=== PATIENT | female | born 1990 | race Caucasian/White ===

== ENCOUNTER 2019-06-02 15:33 | Outpatient (CLI) | payer OTHER | END 2019-06-02 15:34 | disposition home or self-care (01) | LOC: EMS 15:33 | PROVIDERS: ATTEND Surgery | DX: O14.15 Severe pre-eclampsia, complicating the puerperium (principal) | CPT/HCPCS: A0425; A0429 ==

== ENCOUNTER 2019-06-02 16:11 | Inpatient (IN) | payer OTHER ==
[2019-06-02 17:40] LABS: URIC ACID 6.1 mg/dL (2.6-7.2)
[2019-06-02 17:44] LABS: BASOPHILS % (AUTO) 0.3 %; EOSINOPHILS # (AUTO) 0.1 10^3/uL (0.0-0.7); EOSINOPHILS % (AUTO) 0.9 %; HGB - HEMOGLOBIN 12.3 g/dL (12.0-16.0); LYMPHOCYTES # (AUTO) 1.9 10^3/uL (1.5-3.5); MEAN CORPUSCULAR HEMOGLOBIN 30.7 pg (27.0-31.0); MEAN CORPUSCULAR HGB CONC 33.4 g/dL (32.0-36.0); MEAN CORPUSCULAR VOLUME 91.8 fL (81.0-99.0); MEAN PLATELET VOLUME 10.8 fL (7.9-10.8); MONOCYTES # (AUTO) 0.7 10^3/uL (0.0-1.0); MONOCYTES % (AUTO) 6.6 %; NEUTROPHILS # (AUTO) 7.3 10^3/uL (1.5-6.6); NEUTROPHILS % (AUTO) 70.7 %; PLT - PLATELET COUNT 265 10^3/uL (130-450); RED BLOOD COUNT 4.01 10^6/uL (4.20-5.40); WHITE BLOOD COUNT 10.3 x10^3/uL (4.8-10.8)
[2019-06-02 17:52] LABS: CREATININE 0.5 mg/dL (0.4-1.0)
[2019-06-02] MEDS ORDERED: IBUPROFEN 600 MG TABLET PO PRN (18:03)
[2019-06-02] MEDS ORDERED: ONDANSETRON ODT 4 MG TABLET TL PRN (18:03)
--- NOTE | 2019-06-02 18:38 | HISTORY & PHYSICAL EXAMINATION ---
Chief Complaint - Chief Complaint Chief Complaint: Elevated blood pressures History of Present Illness - Admitted From Admitted From:: [facility] - History of Present Illness HPI Comment/Other: The patient is a well-developed, well-nourished, 28-year-old female who is a 1 para 1-0-0-1 1. She delivered on05/28/2019 after being induced for gestational hypertension at 38 weeks and 3 days gestation. This was a 3-day induction and started when she was 38 weeks.She had started to have blood pressure problems starting at 34 to 35 weeks but they were able to watch this.Yesterday she went for a well-baby check and her blood pressure was found to be 151/95. She then went to the OB clinic today at the [facility] and her blood pressure was found to be 169/988. She was sent to [facility] for evaluation because her physician stated that they do not admit patients there. They do not run mag sulfate even if the patient is preeclamptic during labor. She stated that they do ship those patients. The patient herself is completely asymptomatic. She denies any headache, right upper quadrant pain or visual changes.She is breast-feeding without difficulty.Feeling well and voiding well. Her lochia is appropriate. She denies any history of pelvic inflammatory disease, gonorrhea, syphilis, chlamydia, herpes, recurrent vaginal infections, trichomonas or abnormal Pap smears.As as noted above. She has had one full-term vaginal delivery She denies any self or family history of breast disease.She is breast-feeding at the present time. History - Past Medical History Cardiovascular: reports: None Respiratory: reports: None Neuro: reports: None Endocrine/Autoimmune: reports: None GI: reports: None RECRUITER: reports: None : reports: None HEENT: reports: None Psych: reports: None Musculoskeletal: reports: None Derm: reports: None MRSA Hx?: No - Family & Social History Family History: Mother: Hypertension, Father: , Cancer (Prostate), Hypertension Family History Comment/Other: Diabetes with respect to her maternal grandmother and maternal grandfather. Myocardial infarction with respect to her paternal grandfather. Prostate cancer with respect to paternal grandfather. Hypothyroidism with respect to paternal grandmother. Hypertension with respect to maternal grandmother and maternal grandfather as well as paternal grandmother and paternal grandfather. Antiphospholipid syndrome with respect to her brother Review of Systems - Constitutional Constitutional: denies: Fatigue, Fever, Chills, Malaise, Weakness - Eyes Eyes: denies: Pain, Irritation, Amaurosis, Blurred vision, Spots in vision, Field loss, Vision loss, Dipolpia - Ears, Nose & Throat Ears, Nose & Throat: denies: Ear pain, Hearing loss, Hearing aids, Tinnitus, Vertigo, Nasal pain, Nosebleeds, Sore throat, Hoarseness, Mouth lesions, Dental pain - Cardiovascular Cariovascular: denies: Irregular heart rate, Palpitations, Chest pain, Edema, Lightheadedness, Syncope - Respiratory Respiratory: denies: Cough, Sputum production, Wheezing, Hemoptysis, Orthopnea, SOB at rest - Gastrointestinal Gastrointestinal: denies: Abdominal pain, Abdominal distention, Constipation, Diarrhea, Change in bowel habits, Nausea, Vomiting - Genitourinary Genitourinary: denies: Dysuria, Frequency, Urgency, Incontinence, Flank pain, Nocturia - Musculoskeletal Musculoskeletal: denies: Muscle pain, Back pain, Muscle aches, Stiffness, Gout, Joint pain - Integumentary Integumentary: denies: Rash, Pruritis, Lesions, Dryness, Lumps, Acne - Neurological Neurological: denies: General weakness, Focal weakness, Headache, Dizziness, Numbness, Seizures, Slurred speech - Psychiatric Psychiatric: denies: Depression, Anxiety, Suicidal, Delusions, Hallucinations - Endocrine Endocrine: denies: Polyuria, Polydypsia, Polyphagia, Intolerance to cold, Intolerance to heat - Hematologic/Lymphatic Hematologic/Lymphatic: denies: Anemia, Bruising, Petechiae, Blood clots - All Other Systems All Other Systems: denies: Reviewed and negative - Other Findings Other Findings: Allergies: No known drug allergies Social stress history: The patient denies any use of tobacco products, street drugs or alcohol. Exam - Vital Signs Vital Signs: Vital Signs x48h Temp Pulse Resp BP Pulse Ox 06/02/19 17:06 140/88 H 06/02/19 16:40 141/91 H 06/02/19 16:31 36.5 C 53 L 18 155/85 H 100 06/02/19 16:14 155/85 H 06/02/19 16:10 36.5 C 49 L 18 154/90 H 100 - Physical Exam General Appearance: positive: No acute distress, Alert Eyes Bilateral: positive: Normal inspection, PERRL Neck: positive: Nml inspection, Thyroid nml, No JVD, Trachea midline Respiratory: positive: Chest non-tender, No respiratory distress, Breath sounds nml Cardiovascular: positive: Regular rate & rhythm, No murmur, No gallop Peripheral Pulses: positive: 2+ Abdomen: positive: Non-tender, No organomegaly, Nml bowel sounds, No distention Skin: positive: Color nml, No rash, Warm, Dry Extremities: positive: Non-tender, Full ROM, Nml appearance, No pedal edema Neurologic/Psychiatric: positive: Oriented x3, Mood/affect nml Reflexes: Knee (R): 2+, Knee (L): 2+ Conclusion/Plan - Lab Results Fish Bones: 06/02/19 17:21 06/02/19 17:21 Other Lab Results: Uric acid 6.1 AST44 LDH 164 - Other Other Results/Comments: Impression: preeclampsia without severe features Plan: The patient will be admitted to OB. We will start mag sulfate for the next 24 hours. We will also watch her blood pressures. If they resolve we will continue to follow that conservatively. If they do not resolve she will be started onLabetalol p.o.We will reassess her in the morning.We will reassess or sooner if her condition worsens.
[2019-06-02] MEDS: LACTATED RINGERS 1,000 ML IV SCH (19:35)
[2019-06-02] MEDS: MAGNESIUM SULFATE 2 GRAM 2 GM/50 ML BAG IV SCH ×2 (19:50→20:24)
[2019-06-02] MEDS: MAGNESIUM SULFATE IN WATER 20 GM/500 ML IV.SOLN IV SCH (20:40)
[2019-06-03] MEDS ORDERED: SODIUM CHLORIDE FLUSH 0.9% 10 ML SYRINGE IVP SCH (01:00)
[2019-06-03] MEDS: ACETAMINOPHEN 325 MG TABLET PO PRN ×4 (05:22→17:52)
[2019-06-03 06:20] LABS: BASOPHILS % (AUTO) 0.4 %; EOSINOPHILS # (AUTO) 0.1 10^3/uL (0.0-0.7); EOSINOPHILS % (AUTO) 1.2 %; HGB - HEMOGLOBIN 12.5 g/dL (12.0-16.0); LYMPHOCYTES # (AUTO) 1.6 10^3/uL (1.5-3.5); LYMPHOCYTES % (AUTO) 17.2 %; MEAN CORPUSCULAR HEMOGLOBIN 30.6 pg (27.0-31.0); MEAN CORPUSCULAR HGB CONC 33.2 g/dL (32.0-36.0); MEAN CORPUSCULAR VOLUME 92.2 fL (81.0-99.0); MEAN PLATELET VOLUME 10.4 fL (7.9-10.8); MONOCYTES # (AUTO) 0.7 10^3/uL (0.0-1.0); MONOCYTES % (AUTO) 7.2 %; NEUTROPHILS # (AUTO) 6.5 10^3/uL (1.5-6.6); NEUTROPHILS % (AUTO) 69.3 %; PLT - PLATELET COUNT 252 10^3/uL (130-450); RED BLOOD COUNT 4.09 10^6/uL (4.20-5.40); WHITE BLOOD COUNT 9.4 x10^3/uL (4.8-10.8)
[2019-06-03 06:30] LABS: CREATININE 0.6 mg/dL (0.4-1.0)
[2019-06-03] MEDS: MAGNESIUM SULFATE IN WATER 20 GM/500 ML IV.SOLN IV SCH (06:56)
[2019-06-03] MEDS: LACTATED RINGERS 1,000 ML IV SCH (08:20)
--- NOTE | 2019-06-03 08:26 | PROVIDER PROGRESS NOTE ---
Subjective - Prog Note Date Prog Note Date: 06/03/19 Prog Note Time: 08:24 - Subjective Pt reports feeling: Improved Subjective: The patient continues to do well. She is on magnesium sulfate. She Is a bit groggy and has a slight headache with the mag sulfate but nothing untoward. She denies any visual change or right upper quadrant pain. Objective - Vital Signs/Intake & Output Reviewed Vital Signs: Yes Vital Signs: Vital Signs x48h Temp Pulse Resp BP Pulse Ox 06/03/19 05:15 72 16 129/88 H 99 06/03/19 03:12 36.4 C L 69 16 131/87 H 98 Intake & Output: Intake & Output 05/31/19 06/01/19 06/02/19 06/03/19 23:59 23:59 23:59 23:59 Intake Total 550 3150.000 Output Total 1000 2200 Balance -450 950.000 - Lab Results Fish Bones: 06/03/19 06:11 06/03/19 06:11 Other Labs: Lab Results x24hrs 06/03/19 06/03/19 06/03/19 Range/Units 06:11 06:11 06:11 WBC (4.8-10.8) x10^3/uL RBC (4.20-5.40) 10^6/uL Hgb (12.0-16.0) g/dL Hct (37.0-47.0) % MCV (81.0-99.0) fL MCH (27.0-31.0) pg MCHC (32.0-36.0) g/dL RDW (12.0-15.0) % Plt Count (130-450) 10^3/uL MPV (7.9-10.8) fL Neut # (Auto) (1.5-6.6) 10^3/uL Lymph # (Auto) (1.5-3.5) 10^3/uL [place] # (Auto) (0.0-1.0) 10^3/uL Eos # (Auto) (0.0-0.7) 10^3/uL Baso # (Auto) (0.0-0.1) 10^3/uL Absolute Nucleated RBC x10^3/uL Nucleated RBC % /100WBC Creatinine 0.6 (0.4-1.0) mg/dL Estimated GFR (MDRD) 117 (>89) Uric Acid (2.6-7.2) mg/dL AST 38 (10-42) IU/L ALT 114 H (10-60) IU/L Lactate Dehydrogenase 164 (91-225) IU/L 06/03/19 06/02/19 06/02/19 Range/Units 06:11 17:21 17:21 WBC 9.4 (4.8-10.8) x10^3/uL RBC 4.09 L (4.20-5.40) 10^6/uL Hgb 12.5 (12.0-16.0) g/dL Hct 37.7 (37.0-47.0) % MCV 92.2 (81.0-99.0) fL MCH 30.6 (27.0-31.0) pg MCHC 33.2 (32.0-36.0) g/dL RDW 13.0 (12.0-15.0) % Plt Count 252 (130-450) 10^3/uL MPV 10.4 (7.9-10.8) fL Neut # (Auto) 6.5 (1.5-6.6) 10^3/uL Lymph # (Auto) 1.6 (1.5-3.5) 10^3/uL [place] # (Auto) 0.7 (0.0-1.0) 10^3/uL Eos # (Auto) 0.1 (0.0-0.7) 10^3/uL Baso # (Auto) 0.0 (0.0-0.1) 10^3/uL Absolute Nucleated RBC 0.00 x10^3/uL Nucleated RBC % 0.0 /100WBC Creatinine 0.5 (0.4-1.0) mg/dL Estimated GFR (MDRD) 145 (>89) Uric Acid (2.6-7.2) mg/dL AST (10-42) IU/L ALT 138 H (10-60) IU/L Lactate Dehydrogenase (91-225) IU/L 06/02/19 06/02/19 06/02/19 Range/Units 17:21 17:21 17:21 WBC 10.3 (4.8-10.8) x10^3/uL RBC 4.01 L (4.20-5.40) 10^6/uL Hgb 12.3 (12.0-16.0) g/dL Hct 36.8 L (37.0-47.0) % MCV 91.8 (81.0-99.0) fL MCH 30.7 (27.0-31.0) pg MCHC 33.4 (32.0-36.0) g/dL RDW 13.0 (12.0-15.0) % Plt Count 265 (130-450) 10^3/uL MPV 10.8 (7.9-10.8) fL Neut # (Auto) 7.3 H (1.5-6.6) 10^3/uL Lymph # (Auto) 1.9 (1.5-3.5) 10^3/uL [place] # (Auto) 0.7 (0.0-1.0) 10^3/uL Eos # (Auto) 0.1 (0.0-0.7) 10^3/uL Baso # (Auto) 0.0 (0.0-0.1) 10^3/uL Absolute Nucleated RBC 0.00 x10^3/uL Nucleated RBC % 0.0 /100WBC Creatinine (0.4-1.0) mg/dL Estimated GFR (MDRD) (>89) Uric Acid 6.1 (2.6-7.2) mg/dL AST 44 H (10-42) IU/L ALT (10-60) IU/L Lactate Dehydrogenase 164 (91-225) IU/L - Other Results/Comments Other Results/Comments: Heart: Regular rate and rhythm without murmur Lungs: Lungs are clear to auscultation bilaterally without wheezes or rales Abdomen: The abdomen is soft, pliable and nontender Neuro: Deep tendon reflexes are +2/4. No clonus is appreciated. Assessment/Plan - Problem List (1) Mild pre-eclampsia, Impression: Hospital day #1: The patient continues to improve. Her laboratories are improving.Blood pressures have been within normal limits since a few hours after arrival. Plan: We will continue her magnesium sulfate until she is had a full 24 hours. We will continue to monitor her blood pressures. As long as she does well and her blood pressures remain under control and her laboratories continue to improve discharge is expected tomorrow.
[2019-06-03] MEDS ORDERED: POLYETHYLENE GLYCOL 3350 17 GM PACKET PO SCH (09:00)
[2019-06-03] MEDS: SODIUM CHLORIDE FLUSH 0.9% 10 ML SYRINGE IVP PRN (17:52)
[2019-06-04] MEDS: SODIUM CHLORIDE FLUSH 0.9% 10 ML SYRINGE IVP PRN (00:27)
[2019-06-04 06:00] LABS: BASOPHILS % (AUTO) 0.5 %; EOSINOPHILS # (AUTO) 0.1 10^3/uL (0.0-0.7); EOSINOPHILS % (AUTO) 0.8 %; HGB - HEMOGLOBIN 12.9 g/dL (12.0-16.0); LYMPHOCYTES % (AUTO) 22.7 %; MEAN CORPUSCULAR HEMOGLOBIN 30.3 pg (27.0-31.0); MEAN CORPUSCULAR HGB CONC 32.7 g/dL (32.0-36.0); MEAN CORPUSCULAR VOLUME 92.7 fL (81.0-99.0); MEAN PLATELET VOLUME 10.2 fL (7.9-10.8); MONOCYTES # (AUTO) 0.7 10^3/uL (0.0-1.0); MONOCYTES % (AUTO) 8.1 %; NEUTROPHILS # (AUTO) 5.7 10^3/uL (1.5-6.6); NEUTROPHILS % (AUTO) 64.5 %; PLT - PLATELET COUNT 287 10^3/uL (130-450); RED BLOOD COUNT 4.26 10^6/uL (4.20-5.40); WHITE BLOOD COUNT 8.9 x10^3/uL (4.8-10.8)
[2019-06-04 06:12] LABS: CREATININE 0.5 mg/dL (0.4-1.0); URIC ACID 6.2 mg/dL (2.6-7.2)
[2019-06-04 11:40] VITALS: BP 126/80
--- NOTE | 2019-06-04 12:27 | PROVIDER PROGRESS NOTE ---
Subjective - Prog Note Date Prog Note Date: 06/04/19 Prog Note Time: 12:25 - Subjective Subjective: The patient continues to do well. She is without any complaint. She is anxious for discharge. She denies any headache, right upper quadrant pain or visual changes. Objective - Vital Signs/Intake & Output Vital Signs: Vital Signs x48h Temp Pulse Resp BP Pulse Ox 06/04/19 11:39 37.1 C 63 18 126/80 99 06/04/19 08:00 37.2 C 66 16 124/78 97 Intake & Output: Intake & Output 06/01/19 06/02/19 06/03/19 06/04/19 23:59 23:59 23:59 23:59 Intake Total 550 6417.500 Output Total 1000 5960 Balance -450 457.500 - Objective Respiratory: positive: Chest non-tender, Breath sounds nml. negative: No respiratory distress, Wheezes, Rales Cardiovascular: positive: Regular rate & rhythm, No murmur, No gallop Neurologic/Psychiatric: positive: Oriented x3, Motor nml, Sensation nml, Mood/affect nml Reflexes: Knee (R): 2+, Knee (L): 2+ Comments/Other: No clonus is noted bilaterally - Lab Results Fish Bones: 06/04/19 05:27 06/04/19 05:27 Other Labs: Lab Results x24hrs 06/04/19 06/04/19 06/04/19 Range/Units 05:27 05:27 05:27 WBC 8.9 (4.8-10.8) x10^3/uL RBC 4.26 (4.20-5.40) 10^6/uL Hgb 12.9 (12.0-16.0) g/dL Hct 39.5 (37.0-47.0) % MCV 92.7 (81.0-99.0) fL MCH 30.3 (27.0-31.0) pg MCHC 32.7 (32.0-36.0) g/dL RDW 13.0 (12.0-15.0) % Plt Count 287 (130-450) 10^3/uL MPV 10.2 (7.9-10.8) fL Neut # (Auto) 5.7 (1.5-6.6) 10^3/uL Lymph # (Auto) 2.0 (1.5-3.5) 10^3/uL [place] # (Auto) 0.7 (0.0-1.0) 10^3/uL Eos # (Auto) 0.1 (0.0-0.7) 10^3/uL Baso # (Auto) 0.0 (0.0-0.1) 10^3/uL Absolute Nucleated RBC 0.00 x10^3/uL Nucleated RBC % 0.0 /100WBC Creatinine 0.5 (0.4-1.0) mg/dL Estimated GFR (MDRD) 145 (>89) Uric Acid 6.2 (2.6-7.2) mg/dL AST 22 (10-42) IU/L ALT 81 H (10-60) IU/L Lactate Dehydrogenase 175 (91-225) IU/L Assessment/Plan - Problem List (1) Mild pre-eclampsia, Impression: The patient is greatly improved her laboratories are back to normal except for her ALT which will always lag behind AST. AST is normal at this point in time the patient is completely asymptomatic.Her blood pressures now have been within the normal range. I do not feel she needs to be on blood pressure medication at this time. We will therefore allow her to be discharged to home. Discharge instructions: Patient was discharged home with written and verbal instructions which included such things as: 1. The patient is to call if she has headaches not relieved with Tylenol right upper quadrant pain or visual changes. 2. She will continue with her previous home-going instructions. 3. She is to follow-up with her regular OBGYN physician in 48 hours for blood p ressure check.
--- NOTE | 2019-06-04 15:35 | DISCHARGE SUMMARY ---
Physician: Angel Feliciano DO DATE OF ADMISSION: 06/02/2019 DATE OF DISCHARGE: 06/04/2019 ADMITTING DIAGNOSIS: preeclampsia without severe features. DISCHARGE DIAGNOSIS: preeclampsia without severe features, resolved. PROCEDURES: None. LABORATORIES: Her CBC remained stable throughout. Her admission chemistries revealed an elevated ALT of 138. She had previous labs drawn at the [facility], which reported an AST of 57, creatinine 0.6 and a PC ratio of 0.186. She had 265 platelets there. Her uric acid and lactate dehydrogenase remained all within normal limits during the hospital stay, as did her creatinine. Her AST had fallen to 38 by 06/03/2019 and her ALT had fallen to 114. By 06/04/2019 her AST was 22 and her ALT was 81, lagging behind, which is of note, but still shows that she was improved. HOSPITAL COURSE: Patient was transferred to us from the [facility] clinic, where she was found to have an elevated blood pressure of 151/95. She had delivered on 05/28/2019 after a lengthy induction. She had gone home and was fine. She had gone to the pediatricians [facility] for well baby check, and that is when it was found that her blood pressure was 151/95. She followed up with her VEGETABLE TRIMMER on 06/02/2019 and was found to have a blood pressure of 169/98. She was transferred to [facility], because we were told that they do not take care of patients at the [facility] and that they do not run mag sulfate at all at the [facility]. Upon arrival at the OB unit here, her blood pressure was found to be 140/88 but went as high as 154/90. Upon arrival at the Labor and Delivery unit at [facility], her blood pressure was found to be 154/90, but within an hour it had dropped to 140/88. Because of the elevated labs, it did seem that she was having preeclampsia without severe features. She was therefore admitted and a mag sulfate drip was started. She was fairly asymptomatic, except for a small headache that started after the mag sulfate was started. She was on magnesium sulfate then for 24 hours. After that, the magnesium sulfate was discontinued. During that time, her blood pressures began to stabilize. By the midnight of 06/04/2019, her blood pressure was 122/80. By 0400, it was 120/74. By 0800, it was 124/78 and at 11:39, it was just 126/80. At this point in time, patient had been up and moving in her room. She again remained without complaint and was anxious for discharge. Throughout her hospital stay, her lungs remained clear without rales or wheezes. The heart had a regular rate and rhythm without murmur. Deep tendon reflexes were all +2/4, with no clonus ever noted. Because it did appear that she had resolved well from her preeclampsia without severe features, it was felt that she could be discharged to home. DISCHARGE INSTRUCTIONS Patient discharged home with written and verbal instructions including such things as: 1. She is to call if she has any visual changes, right upper quadrant changes or headaches not relieved with Tylenol. 2. She is to continue her previous home-going instructions. 3. She is to follow up with her regular VEGETABLE TRIMMER at the [facility] in 48 hours for blood pressure check. TD: 06/04/2019 12:44 JENNIFER
== END 2019-06-04 12:50 | disposition home or self-care (01) | DRG 776 ==
LOC: WFO 16:11 → FBP 16:14 → WFO 18:02 → FBP 18:03
PROVIDERS: ADMIT Obstetrics & Gynecology; ATTEND Obstetrics & Gynecology
DX: O14.05 Mild to moderate pre-eclampsia, complicating the puerperium (principal)
CPT/HCPCS: 36415; 82565; 83615; 84450; 84460; 84550; 85025; 99212; 99215; A9270; J7120

== ENCOUNTER 2019-06-05 19:59 | Emergency (ER) | payer OTHER ==
--- NOTE | 2019-06-05 21:18 | ED Physician Documentation ---
PD HPI OPHTHO - Stated complaint Stated Complaint: FLASHING VISION - Chief complaint Chief Complaint: General - History obtained from History obtained from: Patient - History of Present Illness Timing - onset: How many hours ago (2), Today Timing - duration: Hours Timing - details: Abrupt onset, Now resolved Location: Other (The patient had onset of some flashing lights in the left eye and then diminished visual acuity in the left eye. She had mild headache with it but no headache at this point. She states the visual changes lasted for about an hour or so. She did not have any focal weakness or numbness. She had history of maternal hypertension and was treated for mild preeclampsia several days ago when she was 3 days . She been told to watch for symptoms such as visual changes and to come in if it occurs. She is not on any blood pressure medicines right now. She has an appointment with her AUTOMOTIVE SERVICE MANAGEMENT TEACHER tomorrow morning.) Associated symptoms: Decreased vision (and scotomata). No: Loss of vision Contributing factors: Other (recently and had HTN and mild pre- eclampsia recently). No: Recent URI, Blunt trauma Recently seen: Emergency Dept, Admitted, Other (induced delivery due to HTN 8 days ago with .) Review of Systems Nose: denies: Rhinorrhea / runny nose, Congestion Throat: denies: Sore throat Respiratory: denies: Cough GI: denies: Nausea, Vomiting Neurologic: denies: Focal weakness, Confused, Altered mental status, Headache PD PAST MEDICAL HISTORY - Past Medical History Cardiovascular: None Respiratory: None Neuro: None Endocrine/Autoimmune: None GI: None MERCHANDISING TEAM LEAD: None : None HEENT: None Psych: None Musculoskeletal: None Derm: None - Present Medications Home Medications: Ambulatory Orders Medication Instructions Recorded Confirmed Pnv95/Ferrous Fumarate/FA 1 tab PO DAILY 06/05/19 06/05/19 [ Vitamins Tablet] - Allergies Allergies/Adverse Reactions: Allergies Allergy/AdvReac Type Severity Reaction Status Date / Time No Known Drug Allergies Allergy Verified 06/05/19 20:15 - Social History Smoking Status: Never smoker PD ED PE NORMAL - Vitals Vital signs reviewed: Yes - General General: Alert and oriented X 3, No acute distress, Well developed/nourished - HEENT HEENT: PERRL, EOMI, Pharynx benign - Neck Neck: Supple, no meningeal sign, No adenopathy - Cardiac Cardiac: RRR, No murmur - Respiratory Respiratory: Clear bilaterally - Abdomen Abdomen: Soft, Non tender - Derm Derm: Normal color - Extremities Extremities: No tenderness to palpate, Normal ROM s pain, No calf tenderness / cord, Other (mild edema in hands/feet) - Neuro Neuro: Alert and oriented X 3, No motor deficit, Normal speech Eye Opening: Spontaneous Motor: Obeys Commands Verbal: Oriented GCS Score: 15 Results - Vitals Vitals: Vital Signs - 24 hr 06/05/19 06/05/19 20:04 22:40 Temperature 36.4 C L Heart Rate 83 54 L Respiratory 16 16 Rate Blood Pressure 140/90 H 138/102 H O2 Saturation 99 100 Oxygen O2 Source Room air - Labs Labs: Laboratory Tests 06/05/19 06/05/19 06/05/19 21:59 21:59 21:59 WBC 10.7 RBC 4.53 Hgb 13.5 Hct 41.8 MCV 92.3 MCH 29.8 MCHC 32.3 RDW 13.0 Plt Count 319 MPV 10.1 Neut # (Auto) 7.1 H Lymph # (Auto) 2.3 [place] # (Auto) 0.9 Eos # (Auto) 0.1 Baso # (Auto) 0.0 Absolute Nucleated RBC 0.00 Nucleated RBC % 0.0 Sodium 140 Potassium 4.4 Chloride 104 Carbon Dioxide 25 Anion Gap 11.0 BUN 14 Creatinine 0.7 Estimated GFR (MDRD) 98 Glucose 94 Uric Acid 6.5 Calcium 9.4 Total Bilirubin 0.4 AST 23 ALT 62 H Alkaline Phosphatase 126 H Total Protein 6.7 Albumin 3.5 Globulin 3.2 Albumin/Globulin Ratio 1.1 Lipase 29 Urine Color Urine Clarity Urine pH Ur Specific [place] Urine Protein Urine Glucose (UA) Urine Ketones Urine Occult Blood Urine Nitrite Urine Bilirubin Urine Urobilinogen Ur Leukocyte Esterase Urine RBC Urine WBC Ur Squamous Epith Cells Urine Bacteria Ur Microscopic Review Urine Culture Comments 06/05/19 22:15 WBC RBC Hgb Hct MCV MCH MCHC RDW Plt Count MPV Neut # (Auto) Lymph # (Auto) [place] # (Auto) Eos # (Auto) Baso # (Auto) Absolute Nucleated RBC Nucleated RBC % Sodium Potassium Chloride Carbon Dioxide Anion Gap BUN Creatinine Estimated GFR (MDRD) Glucose Uric Acid Calcium Total Bilirubin AST ALT Alkaline Phosphatase Total Protein Albumin Globulin Albumin/Globulin Ratio Lipase Urine Color YELLOW Urine Clarity CLEAR Urine pH 6.5 Ur Specific [place] <=1.005 Urine Protein NEGATIVE Urine Glucose (UA) NEGATIVE Urine Ketones NEGATIVE Urine Occult Blood LARGE H Urine Nitrite NEGATIVE Urine Bilirubin NEGATIVE Urine Urobilinogen 0.2 (NORMAL) Ur Leukocyte Esterase SMALL H Urine RBC 0-5 Urine WBC 4-5 Ur Squamous Epith Cells MOD Squamous H Urine Bacteria None Seen Ur Microscopic Review INDICATED Urine Culture Comments NOT INDICATED PD MEDICAL DECISION MAKING - ED course Complexity details: reviewed old records, reviewed results, considered differential (She does not have a history of migraines. She does not have a headache right now. Her eye exam itself is normal. Therefore the visual changes along with her blood pressure being elevated are consistent with recurrent early preeclampsia. Her visual changes have improved now.), d/w patient, d/w artist consultant (Dr. Hernandez - who felt with falling LFTs and normal platelets, no proteinuria, that the patient could be discharged on metoprolol BP med. She has appt with her MERCHANDISING TEAM LEAD tomorrow morning. ) Departure - Departure Disposition: 01 Home, Self Care Clinical Impression: hypertension, Mild pre-eclampsia, Condition: Stable Record reviewed to determine appropriate education?: Yes Comments: Most likely you will want to be on a blood pressure medicine for the next month or 2 due to the persistent and recurrent high blood pressure. Return if you have visual changes headache or other problems overnight. Follow-up with your optics engineer tomorrow morning. Stay well-hydrated. Discharge Date/Time: 06/05/19 22:45
[2019-06-05] MEDS ORDERED: METOPROLOL TARTRATE 25 MG TABLET PO STA (21:43)
[2019-06-05 22:03] LABS: BASOPHILS % (AUTO) 0.3 %; EOSINOPHILS # (AUTO) 0.1 10^3/uL (0.0-0.7); EOSINOPHILS % (AUTO) 0.6 %; HGB - HEMOGLOBIN 13.5 g/dL (12.0-16.0); LYMPHOCYTES # (AUTO) 2.3 10^3/uL (1.5-3.5); LYMPHOCYTES % (AUTO) 21.7 %; MEAN CORPUSCULAR HEMOGLOBIN 29.8 pg (27.0-31.0); MEAN CORPUSCULAR HGB CONC 32.3 g/dL (32.0-36.0); MEAN CORPUSCULAR VOLUME 92.3 fL (81.0-99.0); MEAN PLATELET VOLUME 10.1 fL (7.9-10.8); MONOCYTES # (AUTO) 0.9 10^3/uL (0.0-1.0); MONOCYTES % (AUTO) 8.3 %; NEUTROPHILS # (AUTO) 7.1 10^3/uL (1.5-6.6); NEUTROPHILS % (AUTO) 66.6 %; PLT - PLATELET COUNT 319 10^3/uL (130-450); RED BLOOD COUNT 4.53 10^6/uL (4.20-5.40); WHITE BLOOD COUNT 10.7 x10^3/uL (4.8-10.8)
[2019-06-05 22:20] LABS: ALBUMIN 3.5 g/dL (3.2-5.5); ALBUMIN/GLOBULIN RATIO 1.1 (1.0-2.2); BILIRUBIN,TOTAL 0.4 mg/dL (0.2-1.0); CALCIUM 9.4 mg/dL (8.5-10.3); CREATININE 0.7 mg/dL (0.4-1.0); TOTAL PROTEIN 6.7 g/dL (6.7-8.2)
[2019-06-05 22:24] LABS: BILIRUBIN,URINE NEGATIVE (NEGATIVE); GLUCOSE, URINE (UA) NEGATIVE (NEGATIVE); KETONES,URINE (UA) NEGATIVE (NEGATIVE); LEUKOCYTE ESTERASE, URINE SMALL (NEGATIVE); NITRITE,URINE NEGATIVE (NEGATIVE); OCCULT BLOOD,URINE LARGE (NEGATIVE); PH,URINE 6.5 PH (5.0-7.5); PROTEIN,URINE NEGATIVE (NEGATIVE); UROBILINOGEN,URINE 0.2 (NORMAL) E.U./dL (NORMAL)
[2019-06-05 22:25] LABS: CLARITY,URINE CLEAR (CLEAR)
[2019-06-05 22:30] LABS: BACTERIA,URINE None Seen /HPF (None Seen); RBC,URINE 0-5 /HPF (0-5); SQUAMOUS EPITHELIAL CELL,UR MOD Squamous (<= Few)
[2019-06-05 22:47] VITALS: BP 138/102
== END 2019-06-05 22:45 | disposition home or self-care (01) ==
LOC: ED 19:59
DX: O14.05 Mild to moderate pre-eclampsia, complicating the puerperium (principal)
CPT/HCPCS: 36415; 80053; 81001; 83690; 84550; 85025; 99283; 99284; A9270; 81003; 87086